=== PATIENT | male | born 1935 | race Caucasian/White ===

== ENCOUNTER 2018-07-23 13:54 | Inpatient (IN) | payer OTHER ==
[~2018-07-23] VITALS: Ht 175.3 cm; Wt 80.2 kg
[2018-07-23] VITALS (8 sets, daily range): BP systolic 96–122; BP diastolic 46–71
[2018-07-23] MEDS ORDERED: SODIUM CHLORIDE 0.9% 1,000 ML IV ONE (14:09)
[2018-07-23] MEDS ORDERED: InsuLIN REG 1unit/0.01ml Soln (100units/ml) IV ONE (15:00)
[2018-07-23 15:19] LABS: Alcohol, Urine < 3.0 mg/dL (0-5); Amphetamine Screen, Urine NEGATIVE (NEGATIVE); Barbiturate Scree,Urine NEGATIVE (NEGATIVE); Benzodiazephine Screen, Urine NEGATIVE (NEGATIVE); Cannabinoid Screen, Urine NEGATIVE (NEGATIVE); Cocaine Screen, Urine NEGATIVE (NEGATIVE); Opiate Scree,Urine NEGATIVE (NEGATIVE); Phencyclidine Screen, Urine NEGATIVE (NEGATIVE); Urine Amorphous Crystal FEW /hpf (None Seen); Urine Bacteria NONE SEEN /hpf (None Seen); Urine Blood 3+ /uL (Negative); Urine Specific Gravity 1.028 (1.001-1.035); Urine WBC <1 /hpf (0 - 3)
[2018-07-23 15:21] LABS: Albumin 4.3 g/dL (3.4-5.0); BUN/Creatinine Ratio 10.1; Bilirubin, Total 0.9 mg/dL (0.2-1.0); Calcium 8.9 mg/dL (8.5-10.1); Lactic Acid w/Reflex 4.1 mmol/L (0.4-2.0); Potassium 5.2 mmol/L (3.5-5.1); Total Protein 8.7 g/dL (6.4-8.2)
[2018-07-23 15:25] LABS: Basophils # (auto) 0.1 uL; Basophils % (auto) 0.3 % (0.0-2.0); Eosinophils # (auto) 0 uL; Hematocrit 48.2 % (41.0-53.0); Hemoglobin 15.9 g/dL (13.5-17.5); Lymphocytes # (auto) 1.4 uL; Lymphocytes % (auto) 6.7 % (10.0-50.0); Mean Corpuscular Hemoglobin 30.7 pg (28.0-32.0); Mean Corpuscular Volume 93.2 fL (80.0-100.0); Monocytes # (auto) 0.8 uL; Neutrophils # (auto) 18.3 uL; Nucleated Red Blood Cells % 0.1 %; Platelet Count (auto) 236 10^3/uL (140-450); Red Blood Cells 5.18 10^6/uL (4.5-5.90); White Blood Cell 20.6 10^3/uL (4.4-10.8)
[2018-07-23] MEDS ORDERED: InsuLIN R (HUMAN) 100 UNITS in SODIUM CHL 0.9% 99 ML IV SCH (16:20)
[2018-07-23] MEDS ORDERED: SODIUM CHLORIDE 0.9% 1,000 ML IV SCH ×4 (16:20→22:20)
[2018-07-23] MEDS ORDERED: MORPHINE SULFATE 4 MG/ML SYR/VIAL IV PRN (16:30)
[2018-07-23] MEDS ORDERED: MORPHINE SULF INJ 2 MG/ML SYRINGE 1ML IV PRN (16:30)
[2018-07-23] MEDS ORDERED: LABETALOL HCL 5 MG/ML ML 20ML VIAL IV PRN ×2 (16:30→19:00)
[2018-07-23] MEDS ORDERED: NITROGLYCERIN 0.4 MG SL TAB SL PRN (16:30)
[2018-07-23] MEDS ORDERED: DEXTROSE (50%) 50ML SYRG IV PRN ×2 (16:30→18:15)
[2018-07-23] MEDS ORDERED: PROMETHAZINE HCL 25 MG/ML 1ML IV PRN (16:30)
[2018-07-23] MEDS ORDERED: CEFOTETAN 1GM/D5W 50ML BAG 50 ML IV ONE (16:45)
[2018-07-23] MEDS: ACCU-CHEK COMFORT CURVE STRIP VI SCH ×5 (16:54→22:21)
[2018-07-23] MEDS ORDERED: ENOXAPARIN SOD 40 MG/0.4 ML SYRINGE SC ONE (17:00)
[2018-07-23] MEDS: SODIUM CHLORIDE 0.9% 1,000 ML IV SCH ×2 (18:37→20:14)
[2018-07-23] MEDS: InsuLIN R (HUMAN) 100 UNITS in SODIUM CHL 0.9% 99 ML IV SCH (18:43)
[2018-07-23 18:56] LABS: Folate (Folic Acid) 16.42 ng/mL (5.38-24)
[2018-07-23 19:34] LABS: Basophils # (auto) 0.1 uL; Basophils % (auto) 0.4 % (0.0-2.0); Eosinophils # (auto) 0 uL; Hematocrit 46.8 % (41.0-53.0); Hemoglobin 15.4 g/dL (13.5-17.5); Lymphocytes # (auto) 2.3 uL; Lymphocytes % (auto) 10.4 % (10.0-50.0); Mean Corpuscular Hemoglobin 30.1 pg (28.0-32.0); Mean Corpuscular Hgb Conc. 32.9 g/dL (32.0-36.0); Mean Corpuscular Volume 91.7 fL (80.0-100.0); Monocytes # (auto) 0.7 uL; Monocytes % (auto) 3.4 % (0.0-12.0); Neutrophils # (auto) 18.7 uL; Neutrophils % (auto) 85.8 % (37.0-80.0); Nucleated Red Blood Cells % 0.2 %; Platelet Count (auto) 226 10^3/uL (140-450); Red Blood Cells 5.11 10^6/uL (4.5-5.90); Red Cell Distribution Width 14.6 % (11.8-14.3); White Blood Cell 21.8 10^3/uL (4.4-10.8)
[2018-07-23] MEDS: CEFOTETAN 1GM/D5W 50ML BAG 50 ML IV SCH (22:15)
[2018-07-23 23:56] LABS: BUN/Creatinine Ratio 9.4; Calcium 8.8 mg/dL (8.5-10.1); Magnesium 2.7 mg/dL (1.6-2.6); Phosphorus 1.4 mg/dL (2.5-4.90); Potassium 4.3 mmol/L (3.5-5.1)
[2018-07-24] VITALS (46 sets, daily range): BP systolic 93–149; BP diastolic 51–90
[2018-07-24] MEDS: ACCU-CHEK COMFORT CURVE STRIP VI SCH ×16 (00:09→22:29)
[2018-07-24] MEDS: SODIUM CHLORIDE 0.9% 1,000 ML IV SCH ×4 (00:14→20:10)
[2018-07-24 01:31] LABS: BUN/Creatinine Ratio 9.1; Calcium 8.6 mg/dL (8.5-10.1); Potassium 4.2 mmol/L (3.5-5.1)
[2018-07-24 07:23] LABS: BUN/Creatinine Ratio 12.2; Calcium 8.4 mg/dL (8.5-10.1); Potassium 4.2 mmol/L (3.5-5.1)
[2018-07-24] MEDS ORDERED: ENOXAPARIN SOD 40 MG/0.4 ML SYRINGE SC SCH (10:00)
[2018-07-24] MEDS: ASPirin 300 MG RECTAL SUPP PR SCH (10:06)
[2018-07-24] MEDS: CEFOTETAN 1GM/D5W 50ML BAG 50 ML IV SCH (10:06)
[2018-07-24 11:21] LABS: BUN/Creatinine Ratio 12.1; Calcium 8.4 mg/dL (8.5-10.1); Potassium 4.3 mmol/L (3.5-5.1)
[2018-07-24] MEDS ORDERED: VANCOMYCIN PER PHARMACY 0 MG IV SCH (11:30)
[2018-07-24] MEDS ORDERED: VANCOMYCIN 1GM/250ML 250 ML IV ONE (11:30)
[2018-07-24] MEDS ORDERED: PANTOPRAZOLE 40 MG/10 ML VIAL IV ONE (11:45)
[2018-07-24] MEDS ORDERED: VANCOMYCIN 1,250 MG in D5W 5% 250 ML IV ONE (12:00)
[2018-07-24 12:19] LABS: Urine Amorphous Crystal FEW /hpf (None Seen); Urine Bacteria MOD /hpf (None Seen); Urine Blood 3+ /uL (Negative); Urine Hyaline Cast FEW /lpf (0 - 2); Urine Mucus FEW (None Seen); Urine Specific Gravity 1.032 (1.001-1.035); Urine WBC 10 /hpf (0 - 3)
[2018-07-24] MEDS: InsuLIN R (HUMAN) 100 UNITS in SODIUM CHL 0.9% 99 ML IV SCH (14:05)
[2018-07-24] MEDS: PIPERACILLIN-TAZOB 3.375GM 100 ML IV SCH ×2 (17:10→22:30)
[2018-07-24] MEDS ORDERED: LABETALOL HCL 5 MG/ML ML 20ML VIAL IV PRN (18:30)
[2018-07-24] MEDS: LORazepam 2MG/ML-1ML VIAL IV PRN (18:32)
[2018-07-24] MEDS: MORPHINE SULF INJ 2 MG/ML SYRINGE 1ML IV PRN (20:57)
[2018-07-25] VITALS (22 sets, daily range): BP systolic 95–141; BP diastolic 43–93
[2018-07-25] MEDS: ACCU-CHEK COMFORT CURVE STRIP VI SCH ×8 (00:01→20:16)
[2018-07-25] MEDS: SODIUM CHLORIDE 0.9% 1,000 ML IV SCH (00:09)
[2018-07-25 04:42] LABS: Basophils # (auto) 0 uL; Basophils % (auto) 0.3 % (0.0-2.0); Eosinophils # (auto) 0.1 uL; Eosinophils % (auto) 0.9 % (0.0-7.0); Hematocrit 39.1 % (41.0-53.0); Hemoglobin 12.8 g/dL (13.5-17.5); Lymphocytes # (auto) 3.4 uL; Lymphocytes % (auto) 31.4 % (10.0-50.0); Mean Corpuscular Hemoglobin 29.1 pg (28.0-32.0); Mean Corpuscular Hgb Conc. 32.7 g/dL (32.0-36.0); Mean Corpuscular Volume 89.1 fL (80.0-100.0); Monocytes % (auto) 8.9 % (0.0-12.0); Neutrophils # (auto) 6.4 uL; Neutrophils % (auto) 58.5 % (37.0-80.0); Platelet Count (auto) 178 10^3/uL (140-450); Red Blood Cells 4.39 10^6/uL (4.5-5.90); Red Cell Distribution Width 14.7 % (11.8-14.3); White Blood Cell 10.9 10^3/uL (4.4-10.8)
[2018-07-25 05:04] LABS: Albumin 2.9 g/dL (3.4-5.0); Bilirubin, Total 0.9 mg/dL (0.2-1.0); Calcium 8.1 mg/dL (8.5-10.1); Total Protein 5.9 g/dL (6.4-8.2)
[2018-07-25] MEDS: PIPERACILLIN-TAZOB 3.375GM 100 ML IV SCH (05:04)
[2018-07-25] MEDS ORDERED: SODIUM CHLORIDE 0.9% 1,000 ML IV SCH (08:30)
[2018-07-25] MEDS ORDERED: DEXTROSE (50%) 50ML SYRG IV PRN (08:30)
[2018-07-25] MEDS ORDERED: PIPERACILLIN-TAZOB 2.25GM 50 ML IV SCH (09:30)
[2018-07-25] MEDS: ASPirin 300 MG RECTAL SUPP PR SCH (09:57)
[2018-07-25] MEDS: MORPHINE SULF INJ 2 MG/ML SYRINGE 1ML IV PRN ×2 (09:57→15:18)
[2018-07-25] MEDS ORDERED: PANTOPRAZOLE 40 MG/10 ML VIAL IV SCH (10:00)
[2018-07-25] MEDS: PIPERACILLIN-TAZOB 2.25GM 50 ML IV SCH ×2 (11:16→17:14)
[2018-07-25] MEDS: LORazepam 2MG/ML-1ML VIAL IV PRN ×2 (11:40→20:49)
[2018-07-25] MEDS: InsuLIN REG 1unit/0.01ml Soln (100units/ml) SC SCH ×3 (11:49→20:25)
[2018-07-25] MEDS ORDERED: VANCOMYCIN 1,250 MG in D5W 5% 250 ML IV SCH (13:00)
== END 2018-07-25 21:15 | disposition short-term general hospital (02) | DRG 871 ==
LOC: EDBD 13:54 → ER 13:54 → TELE 13:55 → ICU WEST 21:52
PROVIDERS: ADMIT Internal Medicine; ATTEND Internal Medicine
DX: A41.9 Sepsis, unspecified organism (principal); G93.41 Metabolic encephalopathy; E11.10 Type 2 diabetes mellitus with ketoacidosis without coma; I21.4 Non-ST elevation (NSTEMI) myocardial infarction; R65.21 Severe sepsis with septic shock; N17.0 Acute kidney failure with tubular necrosis; I13.0 Hypertensive heart and chronic kidney disease with heart failure and stage 1 through stage 4 chronic kidney disease, or unspecified chronic kidney disease; I42.9 Cardiomyopathy, unspecified; I69.351 Hemiplegia and hemiparesis following cerebral infarction affecting right dominant side; E11.22 Type 2 diabetes mellitus with diabetic chronic kidney disease; F03.90 Unspecified dementia, unspecified severity, without behavioral disturbance, psychotic disturbance, mood disturbance, and anxiety; F17.200 Nicotine dependence, unspecified, uncomplicated; H53.461 Homonymous bilateral field defects, right side; I25.10 Atherosclerotic heart disease of native coronary artery without angina pectoris; I50.9 Heart failure, unspecified; I67.2 Cerebral atherosclerosis; I70.0 Atherosclerosis of aorta; N18.2 Chronic kidney disease, stage 2 (mild); I25.2 Old myocardial infarction; Z79.899 Other long term (current) drug therapy; Z82.0 Family history of epilepsy and other diseases of the nervous system; Z82.49 Family history of ischemic heart disease and other diseases of the circulatory system; Z95.1 Presence of aortocoronary bypass graft; Z95.2 Presence of prosthetic heart valve
CPT/HCPCS: 36415; 36600; 51702; 70450; 71045; 72170; 73560; 73562; 80048; 80053; 80061; 80307; 81001; 82010; 82550; 82607; 82746; 82805; 82962; 83036; 83605; 83735; 83880; 83930; 84100; 84443; 84484; 85025; 85379; 85652; 87040; 87081; 87086; 92610; 93005; 93306; 93886; 93970; 94761; 95819; 96372; 96374; A6257; C9113; J1815; J2543; J7060